=== PATIENT | male | born 1995 | race Caucasian/White ===

== ENCOUNTER 2017-10-07 21:06 | Emergency (ER) | payer MEDICAID ==
[~2017-10-07] VITALS: Ht 170.2 cm; Wt 65.0 kg
[2017-10-07 22:06] VITALS: BP 144/81
[2017-10-07] MEDS ORDERED: LIDOCAINE HCL 1% 20ML VIAL (Pyxis) INJ INFIL ONE (23:00)
== END 2017-10-07 23:36 | disposition home or self-care (01) ==
LOC: ER 22:31
DX: L03.115 Cellulitis of right lower limb (principal); J45.909 Unspecified asthma, uncomplicated
CPT/HCPCS: 10060; 99283; J3490; Z7610

== ENCOUNTER 2025-02-11 12:04 | Emergency (ER) | payer BC, MEDICAID ==
[~2025-02-11] VITALS: Ht 172.7 cm; Wt 68.0 kg
[2025-02-11 12:06] VITALS: O2SAT 100
[2025-02-11 14:19] VITALS: BP 145/84; PULSE 70; RESP 16; TEMP 36.7; O2SAT 100
== END 2025-02-11 14:57 | disposition home or self-care (01) ==
LOC: ER 12:04
DX: S60.221A Contusion of right hand, initial encounter (principal); J45.909 Unspecified asthma, uncomplicated; V47.5XXA Car driver injured in collision with fixed or stationary object in traffic accident, initial encounter; Y93.89 Activity, other specified; Y92.89 Other specified places as the place of occurrence of the external cause; Y99.8 Other external cause status
CPT/HCPCS: 73120; 99283